=== PATIENT | male | born 1985 | race Caucasian/White ===

== ENCOUNTER 2023-02-02 19:26 | Emergency (ER) | payer OTHER, SELFPAY ==
[2023-02-02 19:29] VITALS: BP 140/82; PULSE 85; RESP 18; O2SAT 99; BMI 22.4
--- NOTE | 2023-02-02 19:41 | ECG_ITS ---
[facility] Test Date: 2023-02-02 Pat Name: JOE KC Department: Room: - Gender: Male Job Coach/Job Developer: : 1985 Requested By: [id number] Order Number: [id number] Reading MD: FADUMO WAN Measurements Intervals Kouts Rate: 76 P: 69 ND: 124 QRS: 93 QRSD: 90 T: 69 QT: 352 QTc: 382 Interpretive Statements 1100 Sinus rhythm 7102 Moderate right axis deviation 9110 normal ECG No previous ECG available for comparison Electronically Signed On 02-03-2023 6:57:38 EDT by FADUMO WAN
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
[2023-02-02 20:08] LABS: Basophils Percent Auto 0.3 % (0.2-2.0); Eosinophils Absolute Auto 0.2 10^3/uL (0.0-0.7); Eosinophils Percent Auto 2.9 % (0.9-7.0); Hematocrit 43.2 % (42.0-54.0); Hemoglobin 15.2 g/dL (14.0-18.0); Immature Granulocytes Abs Auto 0.01 10^3/uL (0.00-0.03); Immature Granulocytes Pct Auto 0.2 % (0.0-0.5); Lymphocytes Absolute Auto 1.6 10^3/uL (1.2-3.8); Lymphocytes Percent Auto 25.9 % (20.5-60.0); Mean Corpuscular HGB Conc 35.2 g/dL (29.9-35.2); Mean Corpuscular Hemoglobin 30.8 pg (25.9-34.0); Mean Corpuscular Volume 87.4 fL (80.0-94.0); Mean Platelet Volume 10.5 fL (9.5-13.5); Monocytes Absolute Auto 0.3 10^3/uL (0.3-0.8); Monocytes Percent Auto 4.2 % (1.7-12.0); Neutrophils Absolute Auto 4.1 10^3/uL (1.4-6.5); Neutrophils Percent Auto 66.5 % (43.0-75.0); Platelet Count 225 10^3/uL (150-450); Red Blood Count 4.94 10^6/uL (4.70-6.10); Red Cell Distribution Width 13.1 % (11.0-15.0); White Blood Count 6.1 10^3/uL (4.0-11.0)
[2023-02-02 20:23] LABS: Alanine Aminotransferase 30 U/L (16-63); Albumin Globulin Ratio 1.1; Albumin Level 4.4 g/dL (3.4-5.0); Alkaline Phosphatase 73 U/L (46-116); Anion Gap 12.9; Aspartate Amino Transferase 44 U/L (15-37); BUN Creatinine Ratio 6.8; Bilirubin Total 0.9 mg/dL (0.2-1.0); Carbon Dioxide 29.7 mmol/L (21.0-32.0); Chloride 103 mmol/L (98-107); Estimated GFR (African America >60 (>=60); Estimated GFR (Non-African Ame >60 (>=60); Glucose 91 mg/dL (74-106); Potassium 3.6 mmol/L (3.5-5.1); Sodium 142 mmol/L (136-145); Total Protein 8.4 g/dL (6.4-8.2)
[2023-02-02 20:25] LABS: Troponin I High Sensitivity <4.0 pg/mL (4.0-76.1)
[2023-02-02 20:44] LABS: Ethanol <3 mg/dL
== END 2023-02-02 21:35 | disposition left against medical advice (07) ==
PROVIDERS: Emergency Provider Internal Medicine
DX: S40.012A Contusion of left shoulder, initial encounter (principal); S06.0X0A Concussion without loss of consciousness, initial encounter; S93.401A Sprain of unspecified ligament of right ankle, initial encounter; S93.601A Unspecified sprain of right foot, initial encounter; V48.5XXA Car driver injured in noncollision transport accident in traffic accident, initial encounter; Z79.899 Other long term (current) drug therapy; F17.210 Nicotine dependence, cigarettes, uncomplicated; Z53.29 Procedure and treatment not carried out because of patient's decision for other reasons
CPT/HCPCS: 36415; 80053; 80307; 80320; 81003; 83605; 84484; 85025; 93005; 99284